=== PATIENT | female | born 1945 | race Caucasian/White ===

== ENCOUNTER 2021-02-05 00:39 | Inpatient (IN) | payer OTHER ==
[2021-02-05] VITALS (59 sets, daily range): BP systolic 89–141; BP diastolic 39–95
[~2021-02-05] VITALS: Ht 160 cm; Wt 83.0 kg
--- NOTE | 2021-02-05 00:39 | NUR ---
COY FROM HOME C/O RESPIRATORY DISTRESS, PT TO BED 8, PT ON BVM UPON ARRIVAL, PT CAME IN WITH LT LEG IO LINE, NO MEDS GIVEN PRIOR, PT PLACED ON MONITOR, RT CALLED, MD AT BEDSIDE FOR EVAL
--- NOTE | 2021-02-05 00:43 | NUR ---
0039: RSI STARTED, MEDS GIVEN ETOMIDATE 10/ROC80 IVP GIVEN ON IO LINE UNDER DIRECT SUPERVISION OF DR. GAMBOA 0041: GIVEN ETOMIDATE 10MG IVP ON L HAND 20G 0043 7.[address] BY [address] GAMBOA WITH RT, 23 AT THE LIP, +BILAT BREATH SOUNDS, PLACED ON VENT 16/500/100/5, O2 SAT 100%,
[2021-02-05] MEDS ORDERED: PROPOFOL 100 ML ONE ×2 (00:44→02:54)
[2021-02-05] MEDS: PROPOFOL 100 ML IV PRN ×2 (00:45→06:03)
--- NOTE | 2021-02-05 00:45 | NUR ---
OG TUBE PLACED, CONNECTED TO SUCTION WITH DARK RED OUTPUT
--- NOTE | 2021-02-05 00:52 | NUR ---
RT NOTE PT BROUGHT IN UNCONSCIOUS BY PARAMEDICS. PT INTUBATED VIA 7.5 ETT AT 23 CM LIPLINE. POSITIVE COLOR CHANGE NOTED. BILATERAL BS. VENT SETTINGS AC 16 500 100% +5 GIVEN PER MD GAMBOA. PT VOMITED MODERATE AMOUNT GROUND GLASS COLORED SECRETIONS. VENT PLUGGED INTO RED OUTLET. BMV @ HOB. ALARMS SET AND AUDIBLE. ETT SECURE AND PATENT. Addendum: 02/05/21 at 0342 by DERIC DENSON RT Amended: Links added.
[2021-02-05] MEDS ORDERED: IV NS 0.9% 250 ML IV ONE ×2 (00:56→13:26)
[2021-02-05] MEDS ORDERED: IOHEXOL-350 100 ML VIAL IV ONE ×2 (00:56→13:25)
[2021-02-05] MEDS ORDERED: CT SWABBABLE VALVE TRANS SET 1 EA INFUS.SET MC ONE ×2 (00:56→13:26)
[2021-02-05] MEDS ORDERED: IV NS 0.9% 1,000 ML BAG IV ONE (01:00)
[2021-02-05] MEDS ORDERED: ETOMIDATE 2 MG/ML VIAL IV ONE ×2 (01:00→10:59)
[2021-02-05] MEDS ORDERED: ROCURONIUM BROMIDE 100 MG/10 ML VIAL IV ONE (01:00)
[2021-02-05 01:36] LABS: BILIRUBIN,URINE Negative (NEGATIVE); COLOR,URINE YELLOW (YELLOW); LEUKOCYTE ESTERASE ,URINE Negative (NEGATIVE); NITRITE, URINE Negative (NEGATIVE); PH,URINE 5.5 (5.0-8.0); PROTEIN,URINE 100 mg/dl (NEGATIVE); UGLUCOSE Negative (NEGATIVE); UROBILINOGEN,URINE 0.2 EU/dL (0.2)
[2021-02-05 01:42] LABS: BASOPHILS % (AUTO) 0.2 % (0.0-2.0); EOSINOPHILS % (AUTO) 0.1 % (0.0-6.0); HEMATOCRIT 33 % (33-45); HEMOGLOBIN 10.3 g/dL (11.5-14.8); LYMPHOCYTES # (AUTO) 0.2 /CMM (0.8-4.8); LYMPHOCYTES % (AUTO) 2.6 % (20.0-44.0); MEAN CORPUSCULAR HGB CONC 31 g/dl (31.0-36.0); MEAN CORPUSCULAR VOLUME 79 fL (82-100); MONOCYTES # (AUTO) 0.5 /CMM (0.1-1.30); MONOCYTES % (AUTO) 5.3 % (2.0-12.0); NEUTROPHILS # (AUTO) 8.2 /CMM (1.8-8.9); NEUTROPHILS % (AUTO) 91.8 % (43.0-81.0); PLATELET COUNT (AUTO) 287 /CMM (150-450); RED BLOOD CELL COUNT(AUTO) 4.15 MIL/uL (4.0-5.2); WHITE BLOOD COUNT (AUTO) 8.9 K/uL (4.3-11.0)
[2021-02-05 02:04] LABS: CARBON DIOXIDE 39 mmol/L (21-32); CHLORIDE 88 mmol/L (98-107); GLUCOSE 184 mg/dL (74-106); SODIUM SERUM 127 mmol/L (136-145); UREA NITROGEN, BLOOD 13 mg/dL (7-18)
[2021-02-05 02:07] LABS: POTASSIUM 6.2 mmol/L (3.5-5.1)
[2021-02-05 02:09] LABS: ALANINE AMINOTRANSFERASE 27 U/L (12-78); ALBUMIN 2.8 g/dL (3.4-5.0); ALKALINE PHOSPHATASE 105 U/L (46-116); ASPARTATE AMINOTRANSFERASE 28 U/L (15-37); B-TYPE NATRIURETIC PEPTIDE 3220 PG/ML (0-125); BILIRUBIN,DIRECT 0.1 mg/dL (0.0-0.2); BILIRUBIN,TOTAL 0.3 mg/dL (0.2-1.0); TOTAL PROTEIN, SERUM 8.1 g/dL (6.4-8.2)
[2021-02-05] MEDS ORDERED: CALCIUM CHLORIDE 1,000 MG/10 ML DISP.SYRIN ONE (02:16)
[2021-02-05] MEDS ORDERED: FUROSEMIDE 20 MG/2 ML VIAL ONE (02:16)
[2021-02-05] MEDS ORDERED: SODIUM BICARBONATE SYR 50 MEQ/50 ML DISP.SYRIN ONE (02:16)
[2021-02-05] MEDS ORDERED: DEXTROSE 50%-WATER 50 ML DISP.SYRIN ONE (02:19)
[2021-02-05] MEDS ORDERED: INSULIN REGULAR, HUMAN 100 UNIT/ML 10 ML VIAL ONE (02:20)
[2021-02-05] MEDS ORDERED: SODIUM BICARBONATE SYR 50 MEQ/50 ML DISP.SYRIN IV ONE (02:30)
[2021-02-05] MEDS ORDERED: INSULIN REGULAR, HUMAN 100 UNIT/ML 10 ML VIAL IV ONE (02:30)
[2021-02-05] MEDS ORDERED: FUROSEMIDE 40 MG/4 ML VIAL IV ONE (02:30)
[2021-02-05] MEDS ORDERED: ALBUTEROL FS 2.5 MG/3 ML VIAL.NEB NEB ONE (02:30)
[2021-02-05] MEDS ORDERED: DEXTROSE 50%-WATER 50 ML DISP.SYRIN IV ONE (02:30)
[2021-02-05] MEDS ORDERED: CALCIUM CHLORIDE 1,000 MG/10 ML DISP.SYRIN IV ONE (02:30)
--- NOTE | 2021-02-05 02:48 | NUR ---
CALL FROM LAB. RAPID COVID NEGATIVE.
[2021-02-05] MEDS ORDERED: ALBUTEROL FS 2.5 MG/3 ML VIAL.NEB ONE (02:58)
[2021-02-05 03:10] LABS: ABG BASE EXCESS 11.4 mmol/L; ABG OXYGEN SATURATION 99.9 % (92.0-98.5); ABG PCO2 54.3 mmHg (35.0-45.0); ABG PH 7.451 (7.350-7.450); ABG PO2 306.8 mmHg (75.0-100.0); AaDO2 351.9 mmHg; COHb 0.4 % (0.5-1.5); MetHb 0.1 % (0.0-1.5); O2Hb 99.4 % (94.0-97.0); PEEP,BG 5 cm H2O; SITE, ABG Right Radial; VT, ABG 500 mL
--- NOTE | 2021-02-05 04:04 | NUR ---
cancelled ct with contrast, unable to establish piv on AC. dr. [facility] ct non contrast order
[2021-02-05] MEDS ORDERED: ACETAMINOPHEN 650 MG/SUPP.RECT RC PRN (05:30)
[2021-02-05] MEDS ORDERED: PROPOFOL 100 ML IV PRN ×2 (05:30→06:30)
[2021-02-05] MEDS ORDERED: PANTOPRAZOLE 40 MG VIAL ONE (05:30)
[2021-02-05] MEDS ORDERED: ACETAMINOPHEN 325 MG TABLET PO PRN (05:30)
[2021-02-05] MEDS ORDERED: PANTOPRAZOLE 80 MG in IV NS 0.9% 500 ML IV ONE (05:30)
[2021-02-05] MEDS ORDERED: ONDANSETRON HCL/PF 4 MG/2 ML VIAL IVP PRN (05:30)
[2021-02-05] MEDS ORDERED: PANTOPRAZOLE 40 MG VIAL IV ONE (05:30)
[2021-02-05] MEDS ORDERED: NOREPINEPHRINE 8 MG in IV NS 0.9% 250 ML IV PRN (05:30)
[2021-02-05] MEDS ORDERED: MORP100S3 PO (05:48)
[2021-02-05] MEDS ORDERED: LEVO112T2 PO (05:48)
[2021-02-05] MEDS ORDERED: AMLO-213 PO (05:48)
[2021-02-05] MEDS ORDERED: HALO2ORA3 PO (05:48)
[2021-02-05] MEDS ORDERED: ONDA4TAB5 PO (05:48)
[2021-02-05] MEDS ORDERED: FURO40TA5 PO (05:48)
[2021-02-05] MEDS ORDERED: LORA-259 PO (05:48)
[2021-02-05] MEDS ORDERED: ROSU20TA2 PO (05:48)
[2021-02-05] MEDS ORDERED: HYOS-15 SL (05:48)
[2021-02-05] MEDS ORDERED: POTA10TA17 PO (05:48)
[2021-02-05] MEDS ORDERED: CARV3.12 PO (05:48)
--- NOTE | 2021-02-05 06:04 | NUR ---
REPORT GIVEN TO [place] TERAN FOR [facility] PT WILL BE TRANSPORTD TO ICU
[2021-02-05] MEDS ORDERED: PIPERACILLIN /TAZOBACTAM 3.375 G VIAL IV ONE (06:07)
[2021-02-05 06:23] LABS: BASOPHILS % (AUTO) 0.2 % (0.0-2.0); EOSINOPHILS % (AUTO) 0.1 % (0.0-6.0); HEMATOCRIT 31 % (33-45); HEMOGLOBIN 9.8 g/dL (11.5-14.8); LYMPHOCYTES # (AUTO) 0.7 /CMM (0.8-4.8); LYMPHOCYTES % (AUTO) 7.8 % (20.0-44.0); MEAN CORPUSCULAR HGB CONC 32 g/dl (31.0-36.0); MEAN CORPUSCULAR VOLUME 78 fL (82-100); MONOCYTES % (AUTO) 10.1 % (2.0-12.0); NEUTROPHILS # (AUTO) 7.8 /CMM (1.8-8.9); NEUTROPHILS % (AUTO) 81.8 % (43.0-81.0); PLATELET COUNT (AUTO) 268 /CMM (150-450); RED BLOOD CELL COUNT(AUTO) 3.95 MIL/uL (4.0-5.2); WHITE BLOOD COUNT (AUTO) 9.5 K/uL (4.3-11.0)
[2021-02-05] MEDS ORDERED: IV NS 0.9% 250 ML IV PRN (06:30)
[2021-02-05 06:49] LABS: ALBUMIN 2.6 g/dL (3.4-5.0); BILIRUBIN,TOTAL 0.6 mg/dL (0.2-1.0); CALCIUM, SERUM 9.7 mg/dL (8.5-10.1); CREATININE 0.7 mg/dL (0.6-1.3); MAGNESIUM 1.9 mg/dL (1.8-2.4); PHOSPHORUS 2.6 mg/dL (2.5-4.9); POTASSIUM 3.2 mmol/L (3.5-5.1); TOTAL PROTEIN, SERUM 7.5 g/dL (6.4-8.2)
--- NOTE | 2021-02-05 07:20 | NUR ---
RN NOTES RECEIVED PT IN ROOM 260 FROM ER , INTUBATED AND SEDATED ON DIPRIVAN AT 60 MCG/KG/MIN, TOLERAING VENT SETTING WELL, O2 SAT WNL, ON TELE A.FIB, HR IN 70'S , OG TUBE TO LIS WITH SMALL AMOUNT OF LIGHT BROWN GASTRIC DRAINING , L LEG IO , R HAND , L HAND AND L FOREARM IV SITES CLEAN ,DRY AND INTACT, SR UP X3, CALL LIGHT WITHIN EASY REACH, BED LOCKED AND IN LOWEST POSITION, CONTINUE TO MONITOR
[2021-02-05 07:24] LABS: THYROID STIMULATING HORMONE 3.763 uIU/mL (0.358-3.74)
--- NOTE | 2021-02-05 07:36 | NUR ---
PT TRANSPORTED TO ICU
[2021-02-05] MEDS: IPRATROPIUM NEB FS 0.5 MG/2.5 ML AMPUL.NEB NEB SCH ×4 (08:04→19:30)
[2021-02-05] MEDS: ALBUTEROL FS 2.5 MG/0.5 ML VIAL.NEB NEB SCH ×4 (08:05→19:30)
[2021-02-05 08:30] LABS: PEEP,BG 5 cm H2O; SITE, ABG Right Radial
[2021-02-05] MEDS: PROPOFOL 10MG/ML 50ML 50 ML IV PRN ×6 (08:36→23:18)
[2021-02-05] MEDS: VANCOMYCIN 1 GM in IV D5W 250 ML IV SCH (08:38)
[2021-02-05] MEDS: PANTOPRAZOLE 40 MG VIAL IV SCH ×2 (08:48→17:22)
[2021-02-05] MEDS: PIPERACILLIN /TAZOBACTAM 3.375 G in IV D5W 50 ML IV SCH ×3 (09:44→20:46)
--- NOTE | 2021-02-05 10:12 | NUR ---
WOUND CARE CONSULT: RECEIVED CONSULT FOR RT BREAST LESION/WOUND, PRESENT ON ADMISSION. PT SEEN FOR SKIN ASSESSMENT WITH SIL KUMAR SURGICAL N.PKrystal RECOMMENDATIONS MADE FOR SKIN PROTECTION. DISCUSSED WITH NURSING STAFF AND SURGICAL N.P. PT IS ON ERIKA ISOFLEX LOW AIRLOSS BED. IN AGREEMENT WITH PLAN OF CARE. Addendum: 02/05/21 at 1014 by KEVAN GALLARDO WNDNU AURORA MARINO MD CONSULTED FOR RT BREAST WOUND/LESION.
[2021-02-05] MEDS: POTASSIUM CL. PREMIX PERIPHER. 50 ML IV SCH ×4 (10:14→14:05)
[2021-02-05] MEDS ORDERED: Z GUARD REMEDY 2 OZ OINT TP PRN (10:30)
[2021-02-05] MEDS ORDERED: FEE EMEERGENCY 1 MIN EA MC ONE (10:59)
[2021-02-05] MEDS ORDERED: ROCURONIUM BROMIDE 50 MG/5 ML IV ONE (10:59)
[2021-02-05] MEDS: Z GUARD REMEDY 2 OZ OINT TP SCH (11:11)
--- NOTE | 2021-02-05 12:15 | NUR ---
RN NOTES US GUIDED THORACENTESIS DONE BY DR COELHO AT THE BEDSIDE, 1785 CC PLURAL FLUID SENT TO LAB PER MD ORDER .PT TOLERATED WELL CONTINUE TO MONITOR.
--- NOTE | 2021-02-05 15:40 | NUR ---
RN NOTES CALL RECEIVED FROM DR DUNCAN THAT HE WAS NOTIFED BY RADIOLOGIST REGARDING PNEUMOTHORAX . ORDER RECEIVED FOR REPEAT CHEST X RAY AT 1700 .
--- NOTE | 2021-02-05 17:15 | NUR ---
RN NOTES DR DUNCAN NOTIFIED REGARDING 1700 REPEAT CHEST X RAY RESULTS . NEW ORDER RECEIVED FOR CHEST X RAY IN AM .
--- NOTE | 2021-02-05 18:00 | NUR ---
RN NOTES PT REMANINS INTUBATED AND SEDATED, ON DIPRIVAN AT 30MCG/KG/MIN, RUNNING , TOLERAING VENT SETTING WELL, QUISPE DRAINING TO GRAVITY, LEFT UPPER ARM PICC LINE SITE CLEAN,DRY AND INTACT, SR UP x3, CALL LIGHT WITHIN EASY REACH, BED LOCKED AND IN LOWEST POSITION, WILL ENDORSE TO BARREL RIBS SOLDERER NURSE FOR CONTINUITY OF CARE
--- NOTE | 2021-02-05 19:30 | NUR ---
ICU/PATCHER WOOD WELDER RT TO SKIP BREATHING TREATMENT DUE TO PCR IS PENDING.
--- NOTE | 2021-02-05 19:36 | NUR ---
RT NOTE Received PT on the Vent Settings VC/AC 12 450 +0 60%. ET tube is patent and secured . Minimal secretions when inline suctioned. SAT 100% HR 85. Breathing TX not given because PT remains on R/O precautions RN notified. Pt is tolerating vent. RT will continue to monitor pt.
[2021-02-06] VITALS (41 sets, daily range): BP systolic 84–151; BP diastolic 36–104
[2021-02-06] MEDS: VANCOMYCIN 1 GM in IV D5W 250 ML IV SCH ×2 (01:15→20:04)
[2021-02-06] MEDS: PROPOFOL 10MG/ML 50ML 50 ML IV PRN ×5 (01:34→10:48)
[2021-02-06] MEDS: PIPERACILLIN /TAZOBACTAM 3.375 G in IV D5W 50 ML IV SCH ×4 (02:31→21:05)
[2021-02-06 04:55] LABS: BASOPHILS % (AUTO) 0.1 % (0.0-2.0); EOSINOPHILS % (AUTO) 0.2 % (0.0-6.0); HEMATOCRIT 31 % (33-45); HEMOGLOBIN 9.9 g/dL (11.5-14.8); LYMPHOCYTES # (AUTO) 0.7 /CMM (0.8-4.8); LYMPHOCYTES % (AUTO) 6.3 % (20.0-44.0); MEAN CORPUSCULAR HGB CONC 32 g/dl (31.0-36.0); MEAN CORPUSCULAR VOLUME 77 fL (82-100); MONOCYTES # (AUTO) 1.2 /CMM (0.1-1.30); MONOCYTES % (AUTO) 10.2 % (2.0-12.0); NEUTROPHILS # (AUTO) 9.7 /CMM (1.8-8.9); NEUTROPHILS % (AUTO) 83.2 % (43.0-81.0); PLATELET COUNT (AUTO) 270 /CMM (150-450); RED BLOOD CELL COUNT(AUTO) 4.05 MIL/uL (4.0-5.2); WHITE BLOOD COUNT (AUTO) 11.7 K/uL (4.3-11.0)
[2021-02-06 05:09] LABS: CALCIUM, SERUM 8.1 mg/dL (8.5-10.1); CREATININE 0.6 mg/dL (0.6-1.3); MAGNESIUM 2.1 mg/dL (1.8-2.4); PHOSPHORUS 4.8 mg/dL (2.5-4.9); POTASSIUM 4.4 mmol/L (3.5-5.1)
--- NOTE | 2021-02-06 07:10 | NUR ---
RN NOTES RECEIVED PT RESTING COMFORTABLY IN MODERATE HIGH BACK REST , INTUBATED AND SEDATED ON DIPRIVAN AT 30 MCG/KG/MIN, TOLERAING VENT SETTING WELL, O2 SAT 100%, PATIENT AFIB ON THE MONITOR, OG TUBE TO LIS WITH SMALL AMOUNT OF YELLOWISH GASTRIC DRAINING, L HAND AND LINDA PICC IV SITES CLEAN ,DRY AND INTACT, QUISPE CATHETER INTACT AND PATENT. NOTED WITH SOFT SAFETY MEASURES IN PLAC, CALL LIGHT WITHIN EASY REACH, BED LOCKED AND IN LOWEST POSITION, SIDE RAILS UP X2. CONTINUE TO MONITOR
[2021-02-06] MEDS: ALBUTEROL FS 2.5 MG/0.5 ML VIAL.NEB NEB SCH ×4 (07:35→19:45)
[2021-02-06] MEDS: IPRATROPIUM NEB FS 0.5 MG/2.5 ML AMPUL.NEB NEB SCH ×4 (07:35→19:45)
[2021-02-06] MEDS: PANTOPRAZOLE 40 MG VIAL IV SCH ×2 (08:07→17:21)
[2021-02-06] MEDS: Z GUARD REMEDY 2 OZ OINT TP SCH (08:09)
[2021-02-06 11:50] LABS: ABG BASE EXCESS 15.1 mmol/L; ABG OXYGEN SATURATION 97.3 % (92.0-98.5); ABG PCO2 55.5 mmHg (35.0-45.0); ABG PH 7.484 (7.350-7.450); ABG PO2 88.6 mmHg (75.0-100.0); AaDO2 132.8 mmHg; COHb 0.4 % (0.5-1.5); MetHb 0.2 % (0.0-1.5); O2Hb 96.7 % (94.0-97.0); VENT MODE, BG SIMV PSV 15; VT, ABG 450 mL
[2021-02-06] MEDS ORDERED: DC PROPOFOL WHEN EXTUBATED XX PRN (12:00)
--- NOTE | 2021-02-06 12:00 | NUR ---
PT EXTUBATED PER MD ORDER. PLACED ON 3LPM N/C. PT ABLE TO CLEAR AIRWAY AND FALLOW SIMPLE COMMANDS.
[2021-02-06] MEDS ORDERED: DILTIAZEM HCL 50 MG IV IV PRN (13:30)
--- NOTE | 2021-02-06 16:00 | NUR ---
ORCHID TRANSPLANTER NOTES S/P EXTUBATION, TOLERATING WELL, NO SIGNS OF DISTRESS NOTED, ON 6LPM LESLEE NC, A/O X3, ABLE TO MAKE NEEDS KNOWN. FAMILY AT BEDSIDE, UPDATES GIVEN REGARDING PATIENT STATUS.
--- NOTE | 2021-02-06 16:24 | NUR ---
[facility] NOTES SPOKE TO JAYMIE STILL OF [place], GIVEN REPORT REGARDING PT STATUS, PER CM TO WAIT FOR CALL BACK, STILL WAITING FOR BED AT [facility]. WILL F/U.
--- NOTE | 2021-02-06 18:30 | NUR ---
BITUMEN PLANT OPERATOR NOTES SPOKE TO SHANNON FROM [place], PATIENT IS GOING TO [facility] RM 5113, ACCEPTED BY DR. ORTEGA. GRANULATOR OPERATOR TIME 20:00. REPORT TO BE GIVEN TO [phone]. WILL F/U.
--- NOTE | 2021-02-06 18:45 | NUR ---
NEW PRODUCT TRAINER NOTES PATIENT REFUSED SKIN ASSESSMENT AND PICTURES.
--- NOTE | 2021-02-06 18:52 | NUR ---
DRIVER'S LICENSE EXAMINER NOTES REPORT GIVEN TO JEFFRY ROACH FROM [facility].
--- NOTE | 2021-02-06 20:00 | NUR ---
Received patient awake alert and oriented x3.VS stable.Respiration even and unlabored with O2 6L NC Saturation 90%-98 %.AFIB 105 -110.Denies chest pain or sob.FC to gravity draining yellow urine.Left upper arm PICC LINE intact with NS at TKO infusing.Patient with right breast wound dressing clean dry and intact.Patient refused breast wound picture taken before transfer to [facility] awaiting transport.Kept comfortable.
--- NOTE | 2021-02-06 21:20 | NUR ---
Patient received vancomycin and Zosyn antibiotics prior to transfer.Patient left in stable condition via [facility] with [facility] and personnel Mechelle New and Kaylin.Patient has no belongings. Discharge papers and report given to Kaylin.
== END 2021-02-06 21:25 | disposition short-term general hospital (02) | DRG 208 ==
LOC: ER 00:43 → ICU 05:56
PROVIDERS: ADMIT Registered Nurse; ATTEND Internal Medicine
PROC: 0W993ZZ Drainage of Right Pleural Cavity, Percutaneous Approach (ICD-10-PCS; principal; 2021-02-05)
PROC: 02HV33Z Insertion of Infusion Device into Superior Vena Cava, Percutaneous Approach (ICD-10-PCS; 2021-02-05)
PROC: B548ZZA Ultrasonography of Superior Vena Cava, Guidance (ICD-10-PCS; 2021-02-05)
PROC: 5A1945Z Respiratory Ventilation, 24-96 Consecutive Hours (ICD-10-PCS; 2021-02-05)
PROC: 0BH18EZ Insertion of Endotracheal Airway into Trachea, Via Natural or Artificial Opening Endoscopic (ICD-10-PCS; 2021-02-05)
DX: J96.01 Acute respiratory failure with hypoxia (principal); E43 Unspecified severe protein-calorie malnutrition; J15.6 Pneumonia due to other Gram-negative bacteria; E87.1 Hypo-osmolality and hyponatremia; C78.01 Secondary malignant neoplasm of right lung; C79.51 Secondary malignant neoplasm of bone; J91.0 Malignant pleural effusion; J93.9 Pneumothorax, unspecified; C50.911 Malignant neoplasm of unspecified site of right female breast; J96.02 Acute respiratory failure with hypercapnia; E87.5 Hyperkalemia; E66.9 Obesity, unspecified; I48.91 Unspecified atrial fibrillation; Z66 Do not resuscitate; Z90.11 Acquired absence of right breast and nipple; Z68.32 Body mass index [BMI] 32.0-32.9, adult; E88.09 Other disorders of plasma-protein metabolism, not elsewhere classified; S21.001A Unspecified open wound of right breast, initial encounter; X58.XXXA Exposure to other specified factors, initial encounter; Y93.89 Activity, other specified; Y92.89 Other specified places as the place of occurrence of the external cause; L91.0 Hypertrophic scar; Z20.822 Contact with and (suspected) exposure to COVID-19
CPT/HCPCS: 36415; 36569; 36600; 70450-TC; 71045-TC; 71250-TC; 80048-TC; 80053-TC; 80061-TC; 80076-TC; 82378; 82533; 82803-TC; 82962-TC; 83605-TC; 83735-TC; 83880; 84100-TC; 84443-TC; 84478-TC; 84484-TC; 84550-TC; 85025-TC; 85730-TC; 86300; 86304; 86850-TC; 87040-TC; 87070-TC; 87075-TC; 87081-TC; 87086-TC; 87102-TC; 89051-TC; 93307-TC; 94003-TC; 94799-TC; 99082-TC; A6253; C1751; C9113; C9803; G0378; J1815; J1940; J2543; J3370; J3480; J3490; J7040; J7050; J7060; Q9967; U0003